=== PATIENT | male | born 1930 | race Caucasian/White ===

== ENCOUNTER 2020-05-19 11:54 | Inpatient (IN) | payer OTHER, MEDICAID, SELFPAY ==
[~2020-05-19] VITALS: Ht 160 cm; Wt 53.3 kg
[2020-05-19 14:19] LABS: BASOPHIL % 0.2 % (0.2-1.5); PLATELET COUNT 393 x10^3mcL (152-348); RED CELL DISTRIBUTION WIDTH 13.3 % (12.1-16.2)
[2020-05-19 14:32] LABS: CALCIUM 8.9 mg/dL (8.5-10.1); CARBON DIOXIDE 26.3 mmol/L (21-32); CHLORIDE SERUM 99 mmol/L (98-107); CREATININE SERUM 1.1 mg/dL (0.7-1.3); GLUCOSE SERUM 150 mg/dL (74-106); POTASSIUM SERUM 3.7 mmol/L (3.5-5.1); SODIUM SERUM 134 mmol/L (136-145)
[2020-05-19 14:37] LABS: ALKALINE PHOSPHATASE 213 U/L (46-116); ALT/SGPT 106 U/L (16-63); AST/SGOT 89 U/L (15-37); BILIRUBIN TOTAL 0.6 mg/dL (0.20-1.00)
[2020-05-19 14:39] LABS: ALBUMIN 2.6 g/dL (3.4-5.0)
[2020-05-19 16:55] LABS: MAGNESIUM 2.1 mg/dL (1.8-2.4); PHOSPHOROUS 2.7 mg/dL (2.5-4.9)
[2020-05-19 18:43] VITALS: BP 126/71
[2020-05-19 19:38] VITALS: BP 126/71
[2020-05-19 21:13] VITALS: BP 125/73
[2020-05-20 05:58] VITALS: BP 135/70
[2020-05-20 07:55] LABS: BASOPHIL % 0.2 % (0.2-1.5); RED CELL DISTRIBUTION WIDTH 13.6 % (12.1-16.2)
[2020-05-20 08:06] LABS: ALKALINE PHOSPHATASE 202 U/L (46-116); ALT/SGPT 105 U/L (16-63); AST/SGOT 70 U/L (15-37); BILIRUBIN TOTAL 0.33 mg/dL (0.20-1.00); CARBON DIOXIDE 25.7 mmol/L (21-32); CHLORIDE SERUM 99 mmol/L (98-107); CREATININE SERUM 0.9 mg/dL (0.7-1.3); GLUCOSE SERUM 130 mg/dL (74-106); PHOSPHOROUS 3.5 mg/dL (2.5-4.9); POTASSIUM SERUM 4.3 mmol/L (3.5-5.1); SODIUM SERUM 134 mmol/L (136-145); TOTAL PROTEIN, SERUM 7.1 g/dL (6.4-8.2)
[2020-05-20 08:09] LABS: ALBUMIN 2.5 g/dL (3.4-5.0)
[2020-05-20 08:27] LABS: PLATELET COUNT 429 x10^3mcL (152-348)
[2020-05-20 09:00] VITALS: BP 109/60
[2020-05-20 12:10] VITALS: BP 123/70
[2020-05-20 20:55] VITALS: BP 126/65
[2020-05-21] VITALS (8 sets, daily range): BP systolic 104–134; BP diastolic 47–84
[2020-05-21 07:39] LABS: BASOPHIL % 0.1 % (0.2-1.5); RED CELL DISTRIBUTION WIDTH 13.4 % (12.1-16.2)
[2020-05-21 08:13] LABS: ALBUMIN 2.4 g/dL (3.4-5.0); ALKALINE PHOSPHATASE 175 U/L (46-116); ALT/SGPT 96 U/L (16-63); AST/SGOT 56 U/L (15-37); BILIRUBIN TOTAL 0.3 mg/dL (0.20-1.00); CALCIUM 8.9 mg/dL (8.5-10.1); CARBON DIOXIDE 25.5 mmol/L (21-32); CHLORIDE SERUM 103 mmol/L (98-107); CREATININE SERUM 0.9 mg/dL (0.7-1.3); GLUCOSE SERUM 119 mg/dL (74-106); PHOSPHOROUS 3.1 mg/dL (2.5-4.9); POTASSIUM SERUM 4.2 mmol/L (3.5-5.1); SODIUM SERUM 138 mmol/L (136-145); TOTAL PROTEIN, SERUM 6.3 g/dL (6.4-8.2)
[2020-05-21 09:30] LABS: PLATELET COUNT 444 x10^3mcL (152-348)
[2020-05-21 13:44] LABS: AMPHETAMINE QUAL UR NONE DETECTED (See below)
[2020-05-22 04:58] VITALS: BP 111/84
[2020-05-22 07:36] VITALS: BP 111/52
[2020-05-22 08:28] LABS: BASOPHIL % 0.7 % (0.2-1.5); RED CELL DISTRIBUTION WIDTH 13.5 % (12.1-16.2)
[2020-05-22 08:32] LABS: ALKALINE PHOSPHATASE 165 U/L (46-116); ALT/SGPT 89 U/L (16-63); AST/SGOT 42 U/L (15-37); BILIRUBIN DIRECT 0.13 mg/dL (0.0-0.2); BILIRUBIN TOTAL 0.25 mg/dL (0.20-1.00); CHLORIDE SERUM 103 mmol/L (98-107); CREATININE SERUM 0.9 mg/dL (0.7-1.3); GLUCOSE SERUM 89 mg/dL (74-106); POTASSIUM SERUM 3.6 mmol/L (3.5-5.1); SODIUM SERUM 137 mmol/L (136-145); TOTAL PROTEIN, SERUM 6.3 g/dL (6.4-8.2)
[2020-05-22 09:13] LABS: ALBUMIN 2.3 g/dL (3.4-5.0)
[2020-05-22 11:05] LABS: PLATELET COUNT 487 x10^3mcL (152-348)
[2020-05-22 12:04] VITALS: BP 129/71
[2020-05-22 16:16] VITALS: BP 140/67
[2020-05-22 21:58] VITALS: BP 124/62
[2020-05-23 05:41] VITALS: BP 121/62
[2020-05-23 07:33] VITALS: BP 129/61
[2020-05-23 08:12] LABS: BILIRUBIN DIRECT 0.12 mg/dL (0.0-0.2); BILIRUBIN TOTAL 0.28 mg/dL (0.20-1.00)
[2020-05-23 08:34] LABS: ALBUMIN 2.2 g/dL (3.4-5.0); TOTAL PROTEIN, SERUM 6.1 g/dL (6.4-8.2)
[2020-05-23 12:20] VITALS: BP 113/55
[2020-05-23 16:42] VITALS: BP 126/63
[2020-05-23 20:41] VITALS: BP 123/47
[2020-05-24 04:45] VITALS: BP 122/61
[2020-05-24 07:57] VITALS: BP 118/58
[2020-05-24 11:56] VITALS: BP 122/59
[2020-05-24 13:45] LABS: CALCIUM 9.2 mg/dL (8.5-10.1); CARBON DIOXIDE 27.2 mmol/L (21-32); CHLORIDE SERUM 100 mmol/L (98-107); CREATININE SERUM 0.9 mg/dL (0.7-1.3); GLUCOSE SERUM 176 mg/dL (74-106); POTASSIUM SERUM 4.2 mmol/L (3.5-5.1); SODIUM SERUM 135 mmol/L (136-145)
[2020-05-24 17:16] VITALS: BP 119/65
[2020-05-24 21:12] VITALS: BP 126/63
[2020-05-25 05:18] VITALS: BP 134/55
[2020-05-25 08:36] VITALS: BP 123/66
[2020-05-25 12:04] LABS: CALCIUM 8.9 mg/dL (8.5-10.1); CARBON DIOXIDE 26.1 mmol/L (21-32); CHLORIDE SERUM 98 mmol/L (98-107); CREATININE SERUM 0.9 mg/dL (0.7-1.3); GLUCOSE SERUM 150 mg/dL (74-106); POTASSIUM SERUM 4.2 mmol/L (3.5-5.1); SODIUM SERUM 134 mmol/L (136-145)
[2020-05-25 12:28] LABS: BAND NEUTROPHIL 0 % (0-10); BASOPHIL 0 % (0-2); MONOCYTE 6 % (0-7); SEGMENTED NEUTROPHILS 89 % (37-75); rbc morphology (normal/abnorm) NORMAL (NORMAL)
[2020-05-25 13:17] VITALS: BP 124/69
[2020-05-25 14:32] LABS: PLATELET COUNT 424 x10^3mcL (130-400); RED CELL DISTRIBUTION WIDTH 13.6 % (11.5-14.5)
[2020-05-25 17:31] VITALS: BP 117/76
[2020-05-25 21:03] VITALS: BP 100/50
[2020-05-26 05:29] VITALS: BP 114/58
[2020-05-26 08:25] VITALS: BP 132/68
[2020-05-26 10:11] LABS: PLATELET COUNT 407 x10^3mcL (152-348)
[2020-05-26 12:24] LABS: CALCIUM 8.8 mg/dL (8.5-10.1); CARBON DIOXIDE 28.4 mmol/L (21-32); CHLORIDE SERUM 97 mmol/L (98-107); CREATININE SERUM 0.8 mg/dL (0.7-1.3); GLUCOSE SERUM 116 mg/dL (74-106); POTASSIUM SERUM 4.4 mmol/L (3.5-5.1); SODIUM SERUM 132 mmol/L (136-145)
[2020-05-26 13:46] VITALS: BP 130/65
[2020-05-26 14:39] LABS: BAND NEUTROPHIL 2 % (0-10); MONOCYTE 4 % (0-7); PLATELET MORPHOLOGY PLATELETS NORMAL; SEGMENTED NEUTROPHILS 87 % (37-75); rbc morphology (normal/abnorm) NORMAL (NORMAL)
[2020-05-26 18:28] VITALS: BP 127/70
[2020-05-26 20:35] VITALS: BP 118/59
[2020-05-27 04:58] VITALS: BP 111/50
[2020-05-27 09:33] LABS: PLATELET COUNT 355 x10^3mcL (152-348); RED CELL DISTRIBUTION WIDTH 14.1 % (12.1-16.2)
[2020-05-27 09:53] LABS: CARBON DIOXIDE 29.7 mmol/L (21-32); CHLORIDE SERUM 98 mmol/L (98-107); CREATININE SERUM 0.8 mg/dL (0.7-1.3); GLUCOSE SERUM 86 mg/dL (74-106); POTASSIUM SERUM 4.6 mmol/L (3.5-5.1); SODIUM SERUM 135 mmol/L (136-145)
[2020-05-27 09:57] VITALS: BP 105/60
[2020-05-27 12:18] VITALS: BP 100/48
[2020-05-27 14:52] LABS: MONOCYTE 2 % (0-7); SEGMENTED NEUTROPHILS 88 % (37-75); rbc morphology (normal/abnorm) NORMAL (NORMAL)
[2020-05-27 20:40] VITALS: BP 124/54
[2020-05-28 05:05] VITALS: BP 113/57
[2020-05-28 07:33] LABS: ALKALINE PHOSPHATASE 148 U/L (46-116); ALT/SGPT 102 U/L (16-63); AST/SGOT 52 U/L (15-37); BILIRUBIN TOTAL 0.4 mg/dL (0.20-1.00); CALCIUM 8.5 mg/dL (8.5-10.1); CARBON DIOXIDE 29.6 mmol/L (21-32); CHLORIDE SERUM 97 mmol/L (98-107); CREATININE SERUM 0.9 mg/dL (0.7-1.3); GLUCOSE SERUM 97 mg/dL (74-106); POTASSIUM SERUM 4.4 mmol/L (3.5-5.1); SODIUM SERUM 133 mmol/L (136-145)
[2020-05-28 07:37] LABS: ALBUMIN 2.2 g/dL (3.4-5.0); TOTAL PROTEIN, SERUM 6.1 g/dL (6.4-8.2)
[2020-05-28 07:42] LABS: PLATELET COUNT 321 x10^3mcL (152-348); RED CELL DISTRIBUTION WIDTH 13.8 % (12.1-16.2)
[2020-05-28 08:17] VITALS: BP 108/60
[2020-05-28 11:38] LABS: BAND NEUTROPHIL 0 % (0-10); SEGMENTED NEUTROPHILS 85 % (37-75)
[2020-05-28 11:39] LABS: BASOPHIL 0 % (0-2); MONOCYTE 2 % (0-7); rbc morphology (normal/abnorm) NORMAL (NORMAL)
[2020-05-28 11:53] VITALS: BP 110/53
[2020-05-28 17:07] VITALS: BP 101/55
[2020-05-28 19:48] VITALS: BP 122/69
[2020-05-29 04:44] VITALS: BP 122/64
[2020-05-29 07:25] LABS: PLATELET COUNT 357 x10^3mcL (152-348)
[2020-05-29 08:06] LABS: ALKALINE PHOSPHATASE 175 U/L (46-116); ALT/SGPT 155 U/L (16-63); AST/SGOT 75 U/L (15-37); BILIRUBIN TOTAL 0.35 mg/dL (0.20-1.00); CALCIUM 9.6 mg/dL (8.5-10.1); CHLORIDE SERUM 98 mmol/L (98-107); CREATININE SERUM 0.9 mg/dL (0.7-1.3); GLUCOSE SERUM 106 mg/dL (74-106); POTASSIUM SERUM 4.6 mmol/L (3.5-5.1); SODIUM SERUM 135 mmol/L (136-145); TOTAL PROTEIN, SERUM 7.2 g/dL (6.4-8.2)
[2020-05-29 08:07] LABS: ALBUMIN 2.6 g/dL (3.4-5.0)
[2020-05-29 09:06] VITALS: BP 128/91
[2020-05-29 11:33] LABS: MONOCYTE 3 % (0-7); SEGMENTED NEUTROPHILS 88 % (37-75); rbc morphology (normal/abnorm) NORMAL (NORMAL)
[2020-05-29 11:36] LABS: PLATELET MORPHOLOGY PLATELETS NORMAL
[2020-05-29 12:35] VITALS: BP 116/62
[2020-05-29 16:01] VITALS: BP 104/59
[2020-05-29 20:09] VITALS: BP 123/65
[2020-05-30 05:18] VITALS: BP 127/81
[2020-05-30 08:11] LABS: ALKALINE PHOSPHATASE 155 U/L (46-116); ALT/SGPT 151 U/L (16-63); AST/SGOT 80 U/L (15-37); BILIRUBIN TOTAL 0.3 mg/dL (0.20-1.00); CALCIUM 8.4 mg/dL (8.5-10.1); CARBON DIOXIDE 31.1 mmol/L (21-32); CHLORIDE SERUM 101 mmol/L (98-107); CREATININE SERUM 0.8 mg/dL (0.7-1.3); GLUCOSE SERUM 99 mg/dL (74-106); POTASSIUM SERUM 4.5 mmol/L (3.5-5.1); SODIUM SERUM 136 mmol/L (136-145)
[2020-05-30 08:14] LABS: ALBUMIN 2.2 g/dL (3.4-5.0)
[2020-05-30 08:47] LABS: PLATELET COUNT 318 x10^3mcL (152-348); RED CELL DISTRIBUTION WIDTH 13.9 % (12.1-16.2)
[2020-05-30 09:12] VITALS: BP 117/64
[2020-05-30 12:30] VITALS: BP 136/68
[2020-05-30 13:16] LABS: MONOCYTE 6 % (0-7); SEGMENTED NEUTROPHILS 85 % (37-75); rbc morphology (normal/abnorm) NORMAL (NORMAL)
[2020-05-30 16:47] VITALS: BP 123/69
[2020-05-30 22:00] VITALS: BP 135/72
[2020-05-31 05:12] VITALS: BP 126/63
[2020-05-31 06:42] LABS: PLATELET COUNT 283 x10^3mcL (152-348); RED CELL DISTRIBUTION WIDTH 13.6 % (12.1-16.2)
[2020-05-31 08:52] LABS: ALKALINE PHOSPHATASE 154 U/L (46-116); ALT/SGPT 249 U/L (16-63); AST/SGOT 103 U/L (15-37); BILIRUBIN TOTAL 0.32 mg/dL (0.20-1.00); CARBON DIOXIDE 26.2 mmol/L (21-32); CHLORIDE SERUM 97 mmol/L (98-107); CREATININE SERUM 0.8 mg/dL (0.7-1.3); GLUCOSE SERUM 102 mg/dL (74-106); POTASSIUM SERUM 4.6 mmol/L (3.5-5.1); SODIUM SERUM 133 mmol/L (136-145); TOTAL PROTEIN, SERUM 6.2 g/dL (6.4-8.2)
[2020-05-31 08:54] LABS: ALBUMIN 2.3 g/dL (3.4-5.0)
[2020-05-31 09:14] VITALS: BP 127/73
[2020-05-31 12:06] LABS: MONOCYTE 4 % (0-7); SEGMENTED NEUTROPHILS 84 % (37-75); rbc morphology (normal/abnorm) NORMAL (NORMAL)
[2020-05-31 12:21] VITALS: BP 134/69
[2020-05-31 16:37] VITALS: BP 111/62
[2020-05-31 21:20] VITALS: BP 143/77
[2020-06-01 05:31] VITALS: BP 106/67
[2020-06-01 07:27] LABS: PLATELET COUNT 301 x10^3mcL (152-348)
[2020-06-01 08:00] LABS: ALKALINE PHOSPHATASE 146 U/L (46-116); ALT/SGPT 211 U/L (16-63); AST/SGOT 76 U/L (15-37); BILIRUBIN TOTAL 0.3 mg/dL (0.20-1.00); CALCIUM 8.1 mg/dL (8.5-10.1); CARBON DIOXIDE 28.6 mmol/L (21-32); CHLORIDE SERUM 98 mmol/L (98-107); CREATININE SERUM 0.8 mg/dL (0.7-1.3); GLUCOSE SERUM 86 mg/dL (74-106); POTASSIUM SERUM 4.4 mmol/L (3.5-5.1); SODIUM SERUM 133 mmol/L (136-145)
[2020-06-01 08:28] LABS: ALBUMIN 2.2 g/dL (3.4-5.0); TOTAL PROTEIN, SERUM 5.9 g/dL (6.4-8.2)
[2020-06-01 09:05] VITALS: BP 123/61
[2020-06-01 13:21] VITALS: BP 104/62
[2020-06-01 13:31] LABS: MONOCYTE 6 % (0-7); SEGMENTED NEUTROPHILS 82 % (37-75); rbc morphology (normal/abnorm) NORMAL (NORMAL)
[2020-06-01 17:21] VITALS: BP 113/62
[2020-06-01 22:09] VITALS: BP 136/84
[2020-06-02 05:36] VITALS: BP 97/55
[2020-06-02 08:40] LABS: PLATELET COUNT 323 x10^3mcL (152-348)
[2020-06-02 09:14] VITALS: BP 99/50
[2020-06-02 09:29] LABS: ALKALINE PHOSPHATASE 144 U/L (46-116); ALT/SGPT 194 U/L (16-63); AST/SGOT 58 U/L (15-37); BILIRUBIN TOTAL 0.24 mg/dL (0.20-1.00); CALCIUM 8.8 mg/dL (8.5-10.1); CARBON DIOXIDE 29.2 mmol/L (21-32); CHLORIDE SERUM 98 mmol/L (98-107); CREATININE SERUM 0.9 mg/dL (0.7-1.3); GLUCOSE SERUM 76 mg/dL (74-106); POTASSIUM SERUM 4.5 mmol/L (3.5-5.1); SODIUM SERUM 134 mmol/L (136-145)
[2020-06-02 09:30] LABS: ALBUMIN 2.2 g/dL (3.4-5.0); TOTAL PROTEIN, SERUM 5.7 g/dL (6.4-8.2)
[2020-06-02 12:38] VITALS: BP 97/45
[2020-06-02 12:58] LABS: BAND NEUTROPHIL 2 % (0-10); MONOCYTE 4 % (0-7); SEGMENTED NEUTROPHILS 81 % (37-75)
[2020-06-02 12:59] LABS: PLATELET MORPHOLOGY PLATELETS NORMAL; rbc morphology (normal/abnorm) NORMAL (NORMAL)
[2020-06-02 16:54] VITALS: BP 109/51
[2020-06-02 21:23] VITALS: BP 119/63
[2020-06-03 05:53] VITALS: BP 116/58
[2020-06-03 07:13] LABS: PLATELET COUNT 303 x10^3mcL (152-348); RED CELL DISTRIBUTION WIDTH 13.9 % (12.1-16.2)
[2020-06-03 07:39] LABS: ALKALINE PHOSPHATASE 129 U/L (46-116); ALT/SGPT 161 U/L (16-63); AST/SGOT 42 U/L (15-37); BILIRUBIN TOTAL 0.25 mg/dL (0.20-1.00); CALCIUM 8.6 mg/dL (8.5-10.1); CARBON DIOXIDE 28.8 mmol/L (21-32); CHLORIDE SERUM 99 mmol/L (98-107); CREATININE SERUM 0.8 mg/dL (0.7-1.3); GLUCOSE SERUM 91 mg/dL (74-106); POTASSIUM SERUM 4.5 mmol/L (3.5-5.1); SODIUM SERUM 132 mmol/L (136-145)
[2020-06-03 07:42] LABS: ALBUMIN 2.2 g/dL (3.4-5.0); TOTAL PROTEIN, SERUM 5.6 g/dL (6.4-8.2)
[2020-06-03 09:50] VITALS: BP 93/58
[2020-06-03 12:21] VITALS: BP 102/53
[2020-06-03 12:45] LABS: BAND NEUTROPHIL 0 % (0-10); BASOPHIL 0 % (0-2); MONOCYTE 4 % (0-7); SEGMENTED NEUTROPHILS 80 % (37-75)
[2020-06-03 12:46] LABS: rbc morphology (normal/abnorm) NORMAL (NORMAL)
[2020-06-03 17:39] VITALS: BP 106/61
[2020-06-03 20:30] VITALS: BP 108/62
[2020-06-04 02:45] VITALS: BP 119/86
[2020-06-04 05:50] VITALS: BP 119/68
[2020-06-04 08:10] LABS: ALBUMIN 2.2 g/dL (3.4-5.0); ALKALINE PHOSPHATASE 144 U/L (46-116); ALT/SGPT 130 U/L (16-63); AST/SGOT 28 U/L (15-37); BILIRUBIN TOTAL 0.16 mg/dL (0.20-1.00); CALCIUM 8.6 mg/dL (8.5-10.1); CARBON DIOXIDE 28.7 mmol/L (21-32); CHLORIDE SERUM 98 mmol/L (98-107); CREATININE SERUM 0.9 mg/dL (0.7-1.3); GLUCOSE SERUM 88 mg/dL (74-106); POTASSIUM SERUM 4.2 mmol/L (3.5-5.1); SODIUM SERUM 133 mmol/L (136-145); TOTAL PROTEIN, SERUM 5.6 g/dL (6.4-8.2)
[2020-06-04 08:29] VITALS: BP 100/54
[2020-06-04 12:02] VITALS: BP 106/62
[2020-06-04 16:10] VITALS: BP 101/56
[2020-06-04 20:26] VITALS: BP 111/57
[2020-06-05 06:01] VITALS: BP 109/58
[2020-06-05 07:50] LABS: ALKALINE PHOSPHATASE 123 U/L (46-116); ALT/SGPT 111 U/L (16-63); AST/SGOT 28 U/L (15-37); BILIRUBIN TOTAL 0.3 mg/dL (0.20-1.00); CALCIUM 7.9 mg/dL (8.5-10.1); CARBON DIOXIDE 31.6 mmol/L (21-32); CHLORIDE SERUM 97 mmol/L (98-107); CREATININE SERUM 0.9 mg/dL (0.7-1.3); GLUCOSE SERUM 75 mg/dL (74-106); POTASSIUM SERUM 4.3 mmol/L (3.5-5.1); SODIUM SERUM 126 mmol/L (136-145)
[2020-06-05 07:51] LABS: ALBUMIN 2.2 g/dL (3.4-5.0); TOTAL PROTEIN, SERUM 5.5 g/dL (6.4-8.2)
[2020-06-05 08:53] VITALS: BP 110/57
[2020-06-05 12:08] VITALS: BP 102/52
[2020-06-05 16:18] VITALS: BP 100/50; BP 106/67
[2020-06-05 22:19] VITALS: BP 130/87
[2020-06-06 06:07] VITALS: BP 99/59
[2020-06-06 09:02] VITALS: BP 107/58
[2020-06-06 09:05] LABS: ALKALINE PHOSPHATASE 138 U/L (46-116); ALT/SGPT 86 U/L (16-63); AST/SGOT 27 U/L (15-37); BILIRUBIN TOTAL 0.3 mg/dL (0.20-1.00); CARBON DIOXIDE 30.5 mmol/L (21-32); CHLORIDE SERUM 99 mmol/L (98-107); CREATININE SERUM 0.8 mg/dL (0.7-1.3); GLUCOSE SERUM 101 mg/dL (74-106); POTASSIUM SERUM 4.1 mmol/L (3.5-5.1); SODIUM SERUM 133 mmol/L (136-145)
[2020-06-06 09:13] LABS: ALBUMIN 2.2 g/dL (3.4-5.0); TOTAL PROTEIN, SERUM 5.6 g/dL (6.4-8.2)
[2020-06-06 11:59] VITALS: BP 102/65
[2020-06-06 17:27] VITALS: BP 104/61
[2020-06-06 20:42] VITALS: BP 106/64
[2020-06-07 05:31] VITALS: BP 112/69
[2020-06-07 09:00] VITALS: BP 111/54
[2020-06-07 12:16] VITALS: BP 111/65
[2020-06-07 14:40] LABS: PLATELET COUNT 320 x10^3mcL (152-348); RED CELL DISTRIBUTION WIDTH 14.3 % (12.1-16.2)
[2020-06-07 14:46] LABS: CALCIUM 8.2 mg/dL (8.5-10.1); CARBON DIOXIDE 31.2 mmol/L (21-32); CHLORIDE SERUM 102 mmol/L (98-107); CREATININE SERUM 0.8 mg/dL (0.7-1.3); GLUCOSE SERUM 133 mg/dL (74-106); POTASSIUM SERUM 4.1 mmol/L (3.5-5.1); SODIUM SERUM 136 mmol/L (136-145)
[2020-06-07 16:04] LABS: BAND NEUTROPHIL 0 % (0-10); BASOPHIL 0 % (0-2); MONOCYTE 6 % (0-7); SEGMENTED NEUTROPHILS 73 % (37-75)
[2020-06-07 16:05] LABS: rbc morphology (normal/abnorm) NORMAL (NORMAL)
[2020-06-07 16:47] VITALS: BP 114/63
[2020-06-07 19:38] VITALS: BP 116/77
[2020-06-08 05:04] VITALS: BP 90/44
[2020-06-08 07:12] LABS: CALCIUM 8.1 mg/dL (8.5-10.1); CARBON DIOXIDE 31.8 mmol/L (21-32); CHLORIDE SERUM 102 mmol/L (98-107); CREATININE SERUM 0.8 mg/dL (0.7-1.3); GLUCOSE SERUM 89 mg/dL (74-106); POTASSIUM SERUM 4.7 mmol/L (3.5-5.1); SODIUM SERUM 135 mmol/L (136-145)
[2020-06-08 09:04] LABS: PLATELET COUNT 309 x10^3mcL (152-348)
[2020-06-08 09:06] LABS: RED CELL DISTRIBUTION WIDTH 14.7 % (12.1-16.2)
[2020-06-08 09:59] VITALS: BP 106/56
[2020-06-08 12:26] LABS: BAND NEUTROPHIL 3 % (0-10); SEGMENTED NEUTROPHILS 69 % (37-75)
[2020-06-08 12:27] LABS: MONOCYTE 6 % (0-7); PLATELET MORPHOLOGY PLATELETS NORMAL; rbc morphology (normal/abnorm) NORMAL (NORMAL)
[2020-06-08 16:50] VITALS: BP 129/66
[2020-06-08 21:08] VITALS: BP 104/58
[2020-06-09 05:37] VITALS: BP 132/73
[2020-06-09] MEDS ORDERED: VENTOLIN H0.09 MG/A1 INH (10:57)
[2020-06-09] MEDS ORDERED: VITC PO (10:58)
[2020-06-09 20:24] VITALS: BP 117/69
[2020-06-10 05:27] VITALS: BP 98/57
[2020-06-10 05:27] LABS: PLATELET COUNT 320 x10^3mcL (152-348); RED CELL DISTRIBUTION WIDTH 14.5 % (12.1-16.2)
[2020-06-10 05:35] LABS: CALCIUM 8.5 mg/dL (8.5-10.1); CARBON DIOXIDE 29.9 mmol/L (21-32); CHLORIDE SERUM 102 mmol/L (98-107); CREATININE SERUM 0.8 mg/dL (0.7-1.3); GLUCOSE SERUM 97 mg/dL (74-106); POTASSIUM SERUM 4.4 mmol/L (3.5-5.1); SODIUM SERUM 136 mmol/L (136-145)
[2020-06-10 06:24] LABS: MONOCYTE 5 % (0-7); SEGMENTED NEUTROPHILS 79 % (37-75)
[2020-06-10 06:25] LABS: BAND NEUTROPHIL 2 % (0-10)
[2020-06-10 06:26] LABS: rbc morphology (normal/abnorm) NORMAL (NORMAL)
[2020-06-10 08:30] VITALS: BP 122/70
[2020-06-10 13:15] VITALS: BP 114/72
[2020-06-10 17:33] VITALS: BP 110/59
[2020-06-10 21:07] VITALS: BP 102/71
[2020-06-11 05:40] VITALS: BP 121/63
[2020-06-11 08:01] LABS: PLATELET COUNT 337 x10^3mcL (152-348)
[2020-06-11 08:11] LABS: RED CELL DISTRIBUTION WIDTH 14.6 % (12.1-16.2)
[2020-06-11 08:24] LABS: CALCIUM 8.3 mg/dL (8.5-10.1); CHLORIDE SERUM 100 mmol/L (98-107); CREATININE SERUM 0.8 mg/dL (0.7-1.3); GLUCOSE SERUM 78 mg/dL (74-106); POTASSIUM SERUM 4.2 mmol/L (3.5-5.1); SODIUM SERUM 135 mmol/L (136-145)
[2020-06-11 08:39] VITALS: BP 123/67
[2020-06-11 12:18] LABS: MONOCYTE 8 % (0-7); SEGMENTED NEUTROPHILS 75 % (37-75); rbc morphology (normal/abnorm) ABNORMAL (NORMAL)
[2020-06-11 12:19] LABS: PLATELET MORPHOLOGY PLATELETS NORMAL
[2020-06-11 12:38] VITALS: BP 110/57
[2020-06-11 18:31] VITALS: BP 114/65
[2020-06-11 20:18] VITALS: BP 112/67
[2020-06-12 04:41] VITALS: BP 106/63
[2020-06-12 07:50] LABS: PLATELET COUNT 343 x10^3mcL (152-348); RED CELL DISTRIBUTION WIDTH 14.5 % (12.1-16.2)
[2020-06-12 10:07] VITALS: BP 103/59
[2020-06-12 11:50] LABS: BAND NEUTROPHIL 3 % (0-10); MONOCYTE 9 % (0-7)
[2020-06-12 11:51] LABS: SEGMENTED NEUTROPHILS 72 % (37-75); rbc morphology (normal/abnorm) NORMAL (NORMAL)
[2020-06-12 11:52] LABS: PLATELET MORPHOLOGY PLATELETS NORMAL
[2020-06-12 13:38] VITALS: BP 105/56
[2020-06-12 17:17] VITALS: BP 99/61
[2020-06-12 20:47] VITALS: BP 116/68
[2020-06-13 06:20] VITALS: BP 112/55
[2020-06-13 08:06] VITALS: BP 113/60
[2020-06-13 12:24] VITALS: BP 120/67
[2020-06-13 13:31] VITALS: BP 120/67
[2020-06-13 13:32] VITALS: Ht 160 cm; Wt 53.3 kg
[2020-06-13 16:44] VITALS: BP 132/80
== END 2020-06-13 17:30 | disposition home or self-care (01) | DRG 177 ==
LOC: ED 11:54 → DU 16:07
PROVIDERS: Emergency Medicine; Family Medicine; Internal Medicine; ADMIT Hospitalist; ATTEND Hospitalist
PROC: XW033E5 Introduction of Remdesivir Anti-infective into Peripheral Vein, Percutaneous Approach, New Technology Group 5 (ICD-10-PCS; principal; 2020-05-20)
PROC: XW13325 Transfusion of Convalescent Plasma (Nonautologous) into Peripheral Vein, Percutaneous Approach, New Technology Group 5 (ICD-10-PCS; 2020-05-21)
DX: U07.1 COVID-19 (principal); J96.01 Acute respiratory failure with hypoxia; E43 Unspecified severe protein-calorie malnutrition; J12.82 Pneumonia due to coronavirus disease 2019; R65.11 Systemic inflammatory response syndrome (SIRS) of non-infectious origin with acute organ dysfunction; E87.1 Hypo-osmolality and hyponatremia; D68.69 Other thrombophilia; E86.0 Dehydration; R74.01 Elevation of levels of liver transaminase levels; Z68.21 Body mass index [BMI] 21.0-21.9, adult
CPT/HCPCS: 82962; 83880; 85378; 97110-GP; 97116-GP; 97164; 97530-GP; G0378; J0456; J0696; J1100; J1650; J3490; J3535; J7030; J7050; J7060; Q0163; U0003